=== PATIENT | female | born 1985 | race Caucasian/White ===

== ENCOUNTER 2025-03-26 09:21 | Outpatient (CLI) | payer BC, MEDICAID, SELFPAY ==
--- NOTE | 2025-03-26 09:31 | MM_ITS ---
WS: [id number] DIAGNOSTIC BILATERAL DIGITAL BREAST TOMOSYNTHESIS MAMMOGRAPHY WITH CAD Bilateral breast ultrasound, limited HISTORY: BREAST TENDERNESS/PAINFUL LUMPY BREASTS COMPARISON: None available. TECHNIQUE: Bilateral craniocaudad, mediolateral oblique, and mediolateral views are submitted with tomosynthesis and SM. Computer aided detection utilized. Breast composition: The breasts are extremely dense, which lowers the sensitivity of mammography. Symmetric appearance of the fibroglandular breast tissue. There are a few benign calcifications. No distortion. No nipple retraction. Bilateral breast ultrasound, limited. Ultrasound directed to the upper outer quadrants of each breast and also the areas of pain. Ultrasound in the upper outer quadrants of each breast demonstrates very dense fibroglandular tissue. There is a small cyst at 11:00 RIGHT breast. No mass or shadowing. MM/MM diag BI tomosynthesis [id number] IMPRESSION: BI-RADS: 2 - Benign FOLLOW UP: 1 Year Follow-up
== END 2025-03-26 09:22 | disposition home or self-care (01) ==
LOC: RAD 09:25
PROVIDERS: PCP Family Medicine; Visit Provider Nurse Practitioner Family
DX: N64.4 Mastodynia (principal); N60.01 Solitary cyst of right breast; R92.323 Mammographic fibroglandular density, bilateral breasts
CPT/HCPCS: 76642; 77062; G0279